=== PATIENT | male | born 1950 | race Caucasian/White ===

== ENCOUNTER 2023-07-10 19:12 | Emergency (ER) | payer BC ==
[~2023-07-10] VITALS: Ht 177.8 cm; Wt 72.6 kg
[2023-07-10 19:25] VITALS: BP_SYST 124; PULSE 73; RESP 18; TEMP 96.3; O2SAT 96
[2023-07-10 21:18] VITALS: BP_SYST 133; PULSE 72; RESP 13; TEMP 98.8; O2SAT 95
== END 2023-07-10 21:18 | disposition home or self-care (01) ==
LOC: SED 19:12
DX: H33.22 Serous retinal detachment, left eye (principal); H53.9 Unspecified visual disturbance; Z88.8 Allergy status to other drugs, medicaments and biological substances; Z79.899 Other long term (current) drug therapy
CPT/HCPCS: 99283